=== PATIENT | male | born 1970 | race Two or more races ===

== ENCOUNTER → 2022-03-03 | Day surgery (SDC) | payer OTHER ==
[~2022-03-03] VITALS: Ht 177.8 cm; Wt 83.9 kg
[~2022-03-03] MED LIST: PERCOCET 5-3251 EACH PO; RECTICARE30 GM TOP
--- NOTE | 2022-03-03 07:31 | NUR ---
SE RECIBE PTE ALERTA Y ORIENTADO X3 CUAL VIENE REFERIDO POR EL DR.REYES SUE PARA ADMISION. SE CARLOS S/V Y SE UBICA.
--- NOTE | 2022-03-03 08:07 | NUR ---
PTE ADMITODO BNAJO LOS SERVCIO DEL CON DX-HEMORROIDE TROMBOSIS SE LE RY MUESTRA DE HELGA POR MS.C ASHA HERNANDEZ Y SE PREPARA A PTE PARA IR A LILLY DE OPERACIONES. SE MANTIENE AL MOMENTO MATEO DE DOLOR Y SE OBSERVA POR CAMBIOS.
== END | disposition home or self-care (01) ==
LOC: ER 07:08 → CIR.AMB 09:48 → O/R 09:48 → SEC-K 09:48 → ER 09:48 → SEC-K 10:33 → O/R 10:33 → EDSTATUS 15:00 → O/R 17:25
PROVIDERS: ATTEND Emergency Medicine
DX: K64.8 Other hemorrhoids (principal); Z88.6 Allergy status to analgesic agent; K64.5 Perianal venous thrombosis; Z20.822 Contact with and (suspected) exposure to COVID-19